=== PATIENT | male | born 1960 | race Caucasian/White ===

== ENCOUNTER 2023-07-23 06:24 | Day surgery (SDC) | payer BC ==
[2023-07-23] MEDS ORDERED: Lactated Ringers 1,000 ML IV SCH (07:00)
[2023-07-23] MEDS ORDERED: Propofol 200 MG/20 ML SDV ONE ×2 (07:41→08:02)
[2023-07-23] MEDS ORDERED: fentaNYL 100 MCG/2 ML SDV ONE (07:42)
== END 2023-07-23 10:00 | disposition home or self-care (01) ==
LOC: VM.SDS 06:24
PROVIDERS: ATTEND Student in an Organized Health Care Education/Training Program
DX: D12.2 Benign neoplasm of ascending colon (principal); D12.0 Benign neoplasm of cecum; J45.20 Mild intermittent asthma, uncomplicated; E78.00 Pure hypercholesterolemia, unspecified; H61.21 Impacted cerumen, right ear; E55.9 Vitamin D deficiency, unspecified; E78.1 Pure hyperglyceridemia; Z90.49 Acquired absence of other specified parts of digestive tract; Z79.899 Other long term (current) drug therapy
CPT/HCPCS: 00812; 45380; 45385; J2704; J3010; J7120